=== PATIENT | male | born 1985 ===

== ENCOUNTER 2016-11-18 01:10 | Emergency (ER) | payer MEDICAID ==
[2016-11-18] MEDS ORDERED: Albuterol-Ipratrop 3 mg / 0.5 (3 ml) UD IH STA (01:29)
--- NOTE | 2016-11-18 01:29 | C.PDOC ---
History Of Present Illness Patient is a 30 year old male who presents to the ER with a complaint of a nonproductive cough, sore throat and body aches for the past 2 days. Patient denies fever or chills. Chief Complaint (Nursing): Cough, Cold, Congestion History Per: Patient History/Exam Limitations: no limitations Onset/Duration Of Symptoms: Days (2) Current Symptoms Are (Timing): Still Present Location Of Pain: Throat, Diffuse Myalgias Sick Contacts (Context): None Associated Symptoms: Sore Throat, Cough, Myalgias. denies: Fever, Chills, Sputum Recent travel outside of the [place]: No Past Medical History Reviewed: Historical Data, Nursing Documentation, Vital Signs Vital Signs: Last Vital Signs Temp 98.3 F 11/18/16 01:14 Pulse 117 H 11/18/16 01:14 Resp 22 11/18/16 01:14 BP 122/72 11/18/16 01:14 Pulse Ox 98 11/18/16 02:51 - Medical History PMH: No Chronic Diseases Surgical History: No Surg Hx Family History: States: Unknown Family Hx - Social History Hx Tobacco Use: No Hx Alcohol Use: No Hx Substance Use: No - Immunization History Hx Tetanus Toxoid Vaccination: No Hx Influenza Vaccination: No Hx Pneumococcal Vaccination: No Review Of Systems Constitutional: Negative for: Fever, Chills ENT: Positive for: Throat Pain Respiratory: Positive for: Cough Musculoskeletal: Positive for: Other (Body aches) Physical Exam - Physical Exam Appears: Non-toxic, No Acute Distress Skin: Normal Color, Warm, Dry Head: Atraumatic, Normacephalic Oral Mucosa: Moist Throat: No Exudate, Other (Pharyngeal congestion) Neck: Normal, Supple Chest: Symmetrical, No Tenderness Cardiovascular: Rhythm Regular (Tachycardic), No Murmur Respiratory: No Rales, Rhonchi (Bilateral), No Wheezing Gastrointestinal/Abdominal: Soft, No Tenderness Neurological/Psych: Oriented x3, Normal Speech, Normal Cognition ED Course And Treatment - Laboratory Results Result Diagrams: 11/18/16 01:45 11/18/16 01:45 ECG Interpretation: Normal, No Acute Changes Interpretation Of ECG: NSR, normal tyracings. Rate From EC O2 Sat by Pulse Oximetry: 98 (Room air) Pulse Ox Interpretation: Normal - Radiology CXR: Interpreted by Me, Viewed By Me CXR Interpretation: Yes: No Acute Disease, Other (normal chest x-ray). No: Infiltrates, Cardiomegaly Progress Note: EKG, blood work, CXR, strep test, and throat culture ordered. Nebulizer treatment administered. Disposition Counseled Patient/Family Regarding: Diagnosis - Disposition Referrals: [facility] [Outside] Disposition: HOME/ ROUTINE Disposition Time: 02:17 Condition: STABLE Prescriptions: Albuterol HFA [Ventolin HFA 90 mcg/actuation (8 g)] 2 puff IH [id number] #1 bottle Amoxicillin [Amoxil 500 mg Cap] 500 mg PO TID #20 cap Promethazine DM [Phenergan DM Syrup] 5 ml PO QID #120 ml Instructions: Pharyngitis (ED), Upper Respiratory Infection (ED) - POA Present On Arrival: None - Clinical Impression Clinical Impression: Pharyngitis, Bronchitis - Scribe Statement The provider has reviewed the documentation as recorded by the Scribden Gee All medical record entries made by the Parkeribden were at my direction and personally dictated by me. I have reviewed the chart and agree that the record accurately reflects my personal performance of the history, physical exam, medical decision making, and the department course for this patient. I have also personally directed, reviewed, and agree with the discharge instructions and disposition.
[2016-11-18] MEDS ORDERED: Sodium Chloride 0.9% 500 ML IV ONE (01:44)
[2016-11-18] MEDS ORDERED: Sodium Chloride 0.9% 1,000 ML IV ONE (01:45)
[2016-11-18 01:49] LABS: BASO % 0.3 % (0.0-2.0); EOS # 0.1 K/uL (0.0-0.7); EOS % 0.6 % (0.0-4.0); HEMATOCRIT 41.5 % (35.0-51.0); LYMPH # 1.8 K/uL (1.0-4.3); LYMPH % 19.2 % (20.0-40.0); MEAN CELL VOLUME 90.4 fL (80.0-94.0); MEAN CORPUSCULAR HEMOGLOBIN 30.4 pg (27.0-31.0); MEAN CORPUSCULAR HGB CONC 33.6 g/dL (33.0-37.0); MEAN PLATELET VOLUME 9.5 fL (7.2-11.7); MONO % 11.4 % (0.0-10.0); RED CELL DISTRIBUTION WIDTH 11.8 % (11.5-14.5); WHITE BLOOD COUNT 9.1 K/uL (4.8-10.8)
[2016-11-18] MEDS ORDERED: Albuterol-Ipratrop 3 mg / 0.5 (3 ml) UD ONE (01:49)
[2016-11-18 02:00] LABS: CHLORIDE 101 mmol/L (98-107)
[2016-11-18 02:01] LABS: POTASSIUM 4.1 mmol/L (3.6-5.2); SODIUM 137 mmol/L (132-148)
[2016-11-18 02:03] LABS: ALB/GLOB RATIO 1.2 (1.0-2.1); ALKALINE PHOSPHATASE 63 U/L (38-126); ALT/SGPT 69 U/L (21-72); AST/SGOT 42 U/L (17-59); BILIRUBIN,TOTAL 1.2 mg/dL (0.2-1.3); BLOOD UREA NITROGEN 12 mg/dL (9-20); CALCIUM 8.8 mg/dl (8.6-10.4); CARBON DIOXIDE 26 mmol/L (22-30); GFR AFRICAN-AMERICAN > 60; GLUCOSE,RANDOM 87 mg/dL (75-110); TOTAL PROTEIN 7.8 g/dL (6.3-8.3)
[2016-11-18 03:34] VITALS: BP 117/76; PULSE 62; RESP 16; TEMP 98.1; O2SAT 100
--- NOTE | 2016-11-18 08:40 | RAD ---
HISTORY: SOB COMPARISON: 11/18/2016 TECHNIQUE: Chest PA and lateral FINDINGS: LUNGS: No active pulmonary disease. PLEURA: No significant pleural effusion identified. No pneumothorax apparent. CARDIOVASCULAR: Normal. OSSEOUS STRUCTURES: No significant abnormalities. VISUALIZED UPPER ABDOMEN: Normal. OTHER FINDINGS: None. IMPRESSION: No active disease.
--- NOTE | 2016-11-20 12:03 | CARD ---
APPROVED REPORT EKG Measurement Heart [id number] MD [id number] <Conclusion> Normal sinus rhythm Normal ECG
== END 2016-11-18 03:32 | disposition home or self-care (01) ==
LOC: C.ER 01:10
DX: J02.9 Acute pharyngitis, unspecified (principal); J40 Bronchitis, not specified as acute or chronic
CPT/HCPCS: 71020; 80053; 85025; 87070; 87804; 93005; 94150; 99284; J7040

== ENCOUNTER 2017-06-15 16:58 | Emergency (ER) | payer MEDICAID, OTHER ==
[2017-06-15 17:02] VITALS: RESP 20; O2SAT 100
[2017-06-15] MEDS ORDERED: Sodium Chloride 0.9% 1,000 ML IV STA (17:09)
--- NOTE | 2017-06-15 17:17 | C.PDOC ---
History Of Present Illness 31 y/o M c no PMHx p/w vomiting this morning. Patient states he drank a lot of alcohol last night for New Year's Shikha. Denies fever, chills, chest pain, dyspnea , diarrhea, constipation. Time Seen by Provider: 06/15/17 17:01 Chief Complaint (Nursing): GI Problem Past Medical History Vital Signs: Last Vital Signs Temp 97.8 F 06/15/17 17:02 Pulse 50 L 06/15/17 17:02 Resp 20 06/15/17 17:02 BP 123/72 06/15/17 17:02 Pulse Ox 100 06/15/17 17:20 Family History: States: Unknown Family Hx - Social History Hx Tobacco Use: No Hx Alcohol Use: Yes Hx Substance Use: No - Immunization History Hx Tetanus Toxoid Vaccination: No Hx Influenza Vaccination: No Hx Pneumococcal Vaccination: No Review Of Systems Except As Marked, All Systems Reviewed And Found Negative. Constitutional: Negative for: Fever Cardiovascular: Negative for: Chest Pain Physical Exam - Physical Exam Additional Physical Exam Comments: Gen: NAD Head: NC Eyes: No icterus ENT: MMM Neck: Supple CV: Radial pulses 2+ Lungs: CTA b/l Abd: Soft, nontender, nondistended Ext: No tenderness or swelling Skin: No rash Neuro: Alert, no focal deficit ED Course And Treatment O2 Sat by Pulse Oximetry: 100 Medical Decision Making Medical Decision Making: Supportive care, IVF, Zofran. Vitals normal and no abdominal tenderness. Disposition - Disposition Disposition: HOME/ ROUTINE Disposition Time: 19:24 Condition: STABLE Prescriptions: Ondansetron ODT [Zofran ODT] 4 mg PO Q8 #12 odt Instructions: Acute Nausea and Vomiting (ED) Forms: [employer] (Georgian) - Clinical Impression Clinical Impression: Vomiting
[2017-06-15 19:39] VITALS: BP 109/68; PULSE 59; TEMP 98.8
== END 2017-06-15 19:38 | disposition home or self-care (01) ==
LOC: C.ER 16:58
DX: R11.10 Vomiting, unspecified (principal)
CPT/HCPCS: 96361; 96374; 99284; J2405; J7040